=== PATIENT | female | born 1985 | race Caucasian/White ===

== ENCOUNTER 2022-07-24 13:39 | Emergency (ER) | payer MEDICAID, SELFPAY ==
--- NOTE | ~2022-07-24 | XR_ITS ---
EXAMINATION: XR CHEST CLINICAL INFORMATION: Cough. COMPARISON: None TECHNIQUE: 2 views of the chest were obtained. FINDINGS: No significant abnormality is noted involving the heart, lungs, mediastinum, bony thorax or soft tissues. XR/XR chest 2V IMPRESSION: Unremarkable examination.
[2022-07-24 14:26] VITALS: BP 150/89; PULSE 98; RESP 16; TEMP 36.6; O2SAT 98; BMI 30.9
[2022-07-24 14:56] LABS: COVID-19 Test Negative (Negative); IDNOW Serial# 16C4AD1C
--- NOTE | 2022-07-24 18:13 | ED.URI ---
HPI - URI/Sore Throat General Chief Complaint: Upper Respiratory Symptoms Stated Complaint: throat pain Time Seen by Provider: 07/24/22 18:12 Source: patient, family (Significant other) and lang interpreter Mode of arrival: ambulatory Limitations: no limitations History of Present Illness HPI Narrative: 37-year-old female came in for evaluation of runny nose, congestion, coughing. Symptoms started about 7 days ago with fever, runny nose, nasal congestion, productive cough with yellow sputum, most of the symptoms improved except the coughing that is been persistent. Patient not smoker, no history of COPD or asthma. No sick contact, no recent travel. Related Data Previous Rx's Medication Instructions Recorded albuterol sulfate 90 mcg/actuation 1 inh inhalation Q4-6H PRN 07/24/22 breath activated powder inhaler shortness of breath or wheezing #1 ea azithromycin 250 mg tablet See Rx Instructions PO .COMPLEX #6 07/24/22 (Zithromax Z-Andrade) tabs prednisone 20 mg tablet 20 mg PO BID #10 tabs 07/24/22 Allergies Allergy/AdvReac Type Severity Reaction Status Date / Time No Known Allergies Allergy Verified 07/24/22 14:26 [No Known Allergies*] Review of Systems Review of Systems: All other systems are reviewed and are negative Constitutional: Reports as per HPI and Reports no additional constitutional complaints Eyes: Reports as per HPI and Reports no additional eye complaints Reports system reviewed and no additional complaints, except as documented Cardiovascular: Reports as per HPI and Reports no additional cardiovascular complaints Respiratory: Reports as per HPI and Reports no additional respiratory complaints Gastrointestinal: Reports as per HPI and Reports no additional gastrointestinal complaints Genitourinary: Reports no additional female genitourinary complaints Musculoskeletal: Reports no additional musculoskeletal complaints Skin/Breast: Reports system reviewed and no additional complaints, except as docu Psychiatric: Reports no additional psychiatric complaints Endocrine: Reports no additional endocrine complaints Hematologic/Lymphatic: Reports no additional hematologic/lymphatic complaints Allergic/Immunologic: Reports no additional allergic/immunologic complaints Reports system reviewed and no additional complaints, except as documented and Reports Abnormal speech present Physical Exam Vital Signs: Vital Signs: Last Vital Signs Temp 98 F 07/24/22 14:26 Pulse 98 07/24/22 14:26 Resp 16 07/24/22 14:26 BP 150/89 H 07/24/22 14:26 Pulse Ox 98 07/24/22 14:26 O2 Del Method 07/24/22 14:26 BMI result Body Mass Index 30.9 Vital signs have been reviewed as appeared to be correct. Blood pressure normal. Heart rate normal. Respiration rate normal. Temperature normal. Oxygen saturation normal. Appearance: Alert. Oriented X3. No acute distress. Head: Normal external exam. Normocephalic. Atraumatic. No Hall signs noted. No raccoon eyes noted Eyes: PERRLA. EOMI. Conjunctiva and sclera normal. Eyelids normal. ENT: TM's Normal. Pharynx normal. Uvula midline. Moist mucous membranes. No trismus noted. No drooling noted. No muffled voice noted. Neck: Normal inspection. Neck supple. FROM. No adenopathy. Thyroid Normal. No meningeal signs. No neck mass noted. CVS: Normal heart rate and rhythm. Heart sound normal. No murmurs noted. Pulses normal throughout. Respiratory: No respiratory distress. Painless inspiration. Breath sounds normal. Prolonged expiration with expiratory wheezing. Chest nontender. No accessory muscle usage noted or decreased air movement noted. Abdomen: Soft and nontender. Bowel sounds normal in all 4 quadrants. No distention noted. No organomegaly noted. No visible injury noted. Back: No CVA tenderness. Full range of motion noted. Skin: Skin warm and dry. Normal skin color. Normal skin turgor. No rashes/lesions/lacerations noted. Extremities: No lower extremity edema. Extremities exhibit normal range of motion. Extremities nontender. Neuro: Oriented X 3. Cranial nerve exam: II-XII are grossly intact No motor deficit. No sensory deficit. Reflexes normal. Course Course Course Narrative: 37-year-old female came in with sign of acute bronchitis persist for 7 days with productive coughing with yellow sputum. Will start the patient on bronchodilator, prednisone, course of Z-Andrade. MDM - URI/Sore Throat Lab Data Attestation: I reviewed the patient's lab results. Labs: Lab Results 07/24/22 Range/Units 14:30 COVID-19 (ANAHY) Negative (Negative) COVID-19 Clin Com See Note Imaging Data Chest x-ray: Attestation: I personally reviewed and interpreted this imaging study as follows: Radiologist's impression: Unremarkable examination. Discharge Plan Discharge Clinical Impression: Upper respiratory infection, Bronchitis Patient Disposition: Home, Self-Care Instructions: Acute Bronchitis (ED) Prescriptions: New albuterol sulfate 90 mcg/actuation aerosol powdr breath activated 1 inh inhalation Q4-6H PRN (Reason: shortness of breath or wheezing) Qty: 1 0RF prednisone 20 mg tablet 20 mg PO BID Qty: 10 0RF azithromycin [Zithromax Z-Andrade] 250 mg tablet See Rx Instructions .ROUTE .COMPLEX Qty: 6 0RF Rx Instructions: For 250 mg dose pack: take 500 mg today (day 1), then 250 mg for 4 days (days 2-5) Referrals: Javi Mccain MD [Primary Care Provider] -
== END 2022-07-24 19:03 | disposition home or self-care (01) ==
LOC: HO.ED 18:57
PROVIDERS: Emergency Provider Emergency Medicine; PCP Internal Medicine
DX: J06.9 Acute upper respiratory infection, unspecified (principal); J40 Bronchitis, not specified as acute or chronic; Z20.822 Contact with and (suspected) exposure to COVID-19
CPT/HCPCS: 71046; 87635; 99282; 99283

== ENCOUNTER 2023-05-22 11:53 | Outpatient (REF) | payer MEDICAID, SELFPAY ==
--- NOTE | ~2023-05-22 | XR_ITS ---
EXAMINATION: XR CHEST CLINICAL INFORMATION: Cough. COMPARISON: 07/24/2022 chest radiographs. TECHNIQUE: 2 views of the chest were obtained. FINDINGS: No significant abnormality is noted involving the heart, lungs, mediastinum, bony thorax or soft tissues. XR/XR chest 2V IMPRESSION: No acute cardiopulmonary process. If symptoms persist or worsen, short-term repeat PA and lateral views of chest are recommended to assess for more acute change.
== END 2023-05-22 11:54 | disposition home or self-care (01) ==
LOC: HO.HHCX 11:53
PROVIDERS: Visit Provider Student in an Organized Health Care Education/Training Program
DX: R05.9 Cough, unspecified (principal); R06.02 Shortness of breath
CPT/HCPCS: 71046

== ENCOUNTER 2023-07-04 14:31 | Outpatient (REF) | payer MEDICAID, SELFPAY ==
--- NOTE | ~2023-07-04 | MM_ITS ---
EXAMINATION: MM DIAGNOSTIC DIGITAL BREAST TOMOSYNTHESIS, BILATERAL US BREAST LIMITED, LEFT MAMMOGRAPHY: CLINICAL INFORMATION: 38-year-old female, baseline mammography. Patient's physician felt palpable focus of concern upper inner quadrant left breast, which the patient herself cannot feel. Patient also complaining of episodic left yellowish nipple discharge. Routine screening bilaterally. COMPARISON: Mammography: None. Baseline exam. TECHNIQUE: Digital breast tomosynthesis is performed in both the craniocaudal and mediolateral oblique views along with computer-aided detection (CAD). Synthesized 2D images are generated from the tomosynthesis. A full-field additional right 3-D MLO projection was obtained due to motion artifact, as well as a full field 3-D digital left mediolateral view. FINDINGS: The breasts are heterogeneously dense, which may obscure small masses (ACR BI-RADS breast composition Category c). There are numerous bilateral circumscribed oval and round masses in both breasts, findings consistent with benign entities such as numerous cysts or fibroadenomas. No evidence of suspicious mass, area of architectural distortion, or suspicious grouped calcifications identified. A few scattered benign-appearing calcifications are present in both breasts. There is no mammographic abnormality in the upper inner left breast, nor in the retroareolar left breast to explain patient's symptomatology or the purported palpable focus of concern. ULTRASOUND: CLINICAL INFORMATION: Left nipple discharge, and questionable palpable focus of concern upper inner quadrant left breast. Baseline mammography. COMPARISON: None TECHNIQUE: Targeted sonographic evaluation was performed with attention to the left retroareolar region and left upper inner quadrant, using a high frequency linear transducer. Selected archived documentation. FINDINGS: LEFT BREAST: There are numerous islands of dense breast parenchyma identified in the left breast. There is no mass, cystic abnormality, abnormal parenchymal shadowing, or intraductal mass identified. There is mild retroareolar duct ectasia present without intraluminal filling defects. No sonographic correlate to the purported focus of palpable concern left breast upper inner quadrant. MM/MM tomosynthesis diagnostic BI IMPRESSION: There are no findings suspicious for malignancy in either breast. Benign findings bilaterally as described. No imaging correlate to the purported focus of palpable concern left breast upper inner quadrant, nor is there imaging explanation for left nipple discharge aside from mild retroareolar ectatic ducts. Recommend clinical management of the patient's symptomatology. Decision to biopsy a palpable abnormality without imaging correlate must be determined on a clinical basis. Otherwise, recommend resuming routine annual screening mammography. OVERALL ASSESSMENT: Mammography: BI-RADS 2 - Benign Findings Ultrasound: BI-RADS 2 - Benign Findings RECOMMENDATION: 1 year F/U This patient's information was entered into a reminder system with a target due date for their next mammogram.
== END 2023-07-04 14:32 | disposition home or self-care (01) ==
LOC: HO.MAMMO 14:31
PROVIDERS: PCP Nurse Practitioner Primary Care; Visit Provider Nurse Practitioner Primary Care
DX: N64.52 Nipple discharge (principal)
CPT/HCPCS: 76642; 77062; 77066

== ENCOUNTER → 2023-07-04 15:00 | Outpatient (BNV) | payer MEDICAID, SELFPAY | PROVIDERS: PCP Nurse Practitioner Primary Care; Visit Provider Radiology Diagnostic Radiology | DX: N63.22 Unspecified lump in the left breast, upper inner quadrant (principal) | CPT/HCPCS: 76642; 77062; 77066 ==

== ENCOUNTER 2023-11-14 18:25 | Outpatient (REF) | payer MEDICAID, SELFPAY | END 2023-11-14 18:26 | disposition home or self-care (01) | LOC: HO.HHCLNP 18:25 | PROVIDERS: Visit Provider Emergency Medicine | DX: Z11.3 Encounter for screening for infections with a predominantly sexual mode of transmission (principal); R50.9 Fever, unspecified | CPT/HCPCS: 0353U; 87086; 87088; 87186; 87480; 87510; 87660 ==

== ENCOUNTER 2024-03-19 14:06 | Outpatient (REF) | payer MEDICAID, SELFPAY ==
[2024-03-19 16:02] LABS: MANUAL DIFF FLAG NO
[2024-03-19 16:05] LABS: Basophils Absolute Auto 0.1 X10*3/uL (0.0-0.2); Basophils Percent Auto 0.6 % (0-2); Eosinophils Absolute Auto 0.3 X10*3/uL (0.0-0.4); Eosinophils Percent Auto 3.6 % (0-4); Hematocrit 31.9 % (37.0-47.0); Imm Gran Abs Auto 0.02 X10*3/uL (0.00-0.03); Imm Gran Pct Auto 0.2 % (0.0-0.4); Lymphocytes Absolute Auto 2.3 X10*3/uL (1.2-4.9); Lymphocytes Percent Auto 27.2 % (20-40); Mean Corpuscular HGB Conc 31.3 g/dl (31.0-35.0); Mean Corpuscular Hemoglobin 23.3 pg (27.0-33.0); Mean Corpuscular Volume 74.4 fL (80.0-98.0); Mean Platelet Volume 12.4 fL (9.4-12.3); Monocytes Absolute Auto 0.7 X10*3/uL (0.1-1.2); Monocytes Percent Auto 8.3 % (2-11); Neutrophils Percent Auto 60.1 % (45-73); Platelet Count 305 X10*3/uL (160-400); Red Blood Count 4.29 X10*6/uL (4.20-5.50); Red Cell Distribution Width 14.9 % (11.0-16.0); White Blood Count 8.3 X10*3/uL (4.8-10.8)
[2024-03-19 17:32] LABS: CT PCR NOT DETECTED (Not Detect.); NG PCR NOT DETECTED (Not Detect.)
[2024-03-20 12:14] LABS: CT PCR NOT DETECTED (Not Detect.); NG PCR NOT DETECTED (Not Detect.)
[2024-03-20 14:34] LABS: BV Int Neg Control Negative (Negative); BV Int Pos Control Positive (Positive)
== END 2024-03-19 14:07 | disposition home or self-care (01) ==
LOC: HO.HHCL 14:06
PROVIDERS: Visit Provider Nurse Practitioner Family
DX: D50.9 Iron deficiency anemia, unspecified (principal); N76.0 Acute vaginitis
CPT/HCPCS: 0353U; 36415; 85025; 87480; 87510; 87660

== ENCOUNTER 2024-04-15 16:03 | Outpatient (REF) | payer MEDICAID, SELFPAY ==
[2024-04-28 12:07] LABS: HPV 16 RNA NOT DETECTED (NOT DETECTED); HPV mRNA E6/E7 rflx Detected (Not Detected)
== END 2024-04-15 16:04 | disposition home or self-care (01) ==
LOC: HO.HHCLNP 16:03
PROVIDERS: Visit Provider Advanced Practice Midwife
DX: Z12.4 Encounter for screening for malignant neoplasm of cervix (principal)
CPT/HCPCS: 87624; 87625; 88142

== ENCOUNTER 2024-04-23 12:27 | Outpatient (REF) | payer MEDICAID, SELFPAY ==
--- NOTE | ~2024-04-23 | US_ITS ---
EXAMINATION: US PELVIS CLINICAL INFORMATION: Menorrhagia. Right lower quadrant pain. COMPARISON: Previous pelvic ultrasound September 2017 TECHNIQUE: Ultrasound of the pelvis is performed using both transabdominal and transvaginal transducers along with Doppler. Transvaginal imaging is performed due to inadequate visualization transabdominally. FINDINGS: The uterus is anteverted and measures 10 x 5.7 x 6.8 cm in dimension. No focal uterine lesion is seen. Endometrial thickness is normal measuring 1.4 cm. No focal uterine lesion. Small nabothian in the cervix. The right ovary is enlarged and measures 5.5 x 3.9 x 4.2 cm. There is a 3.5 x 3.7 x 3.9 cm complex cyst with some septations and low-level internal echoes. Ultrasound appearance is most suggestive of a hemorrhagic cyst. The left ovary is normal and measures 3.6 x 2.1 x 2.4 cm. There is no fluid in the pelvis. US/US pelvic and transvaginal IMPRESSION: Enlarged right ovary containing 3.5 x 3.7 x 3.9 cm complex cyst. This probably represents a hemorrhagic cyst. Follow-up exam following several menstrual cycles in 10-12 weeks recommended.
== END 2024-04-23 12:28 | disposition home or self-care (01) ==
LOC: HO.US 12:27
PROVIDERS: PCP Advanced Practice Midwife; Visit Provider Advanced Practice Midwife
DX: R10.2 Pelvic and perineal pain (principal); N92.0 Excessive and frequent menstruation with regular cycle
CPT/HCPCS: 76830; 76856

== ENCOUNTER 2024-09-24 14:40 | Outpatient (REF) | payer MEDICAID, SELFPAY | END 2024-09-24 14:41 | disposition home or self-care (01) | LOC: HO.HHCL 14:40 | PROVIDERS: Visit Provider Student in an Organized Health Care Education/Training Program | DX: D64.9 Anemia, unspecified (principal) | CPT/HCPCS: 36415; 85025 ==

== ENCOUNTER 2024-10-12 11:52 | Outpatient (REF) | payer MEDICAID, SELFPAY ==
[2024-10-12 14:39] LABS: HCG Quantitative < 2 mIU/mL; TSH reflex Free T4 1.27 uIU/mL (0.32-4.0)
[2024-10-13 05:04] LABS: Syphilis Screen Nonreactive (Nonreactive)
[2024-10-13 05:28] LABS: HBc Num1 0.09 S/CO (0.00-0.79); HBsAGNum1 0.46 S/CO (0.00-0.99); HIV AB/AG Nonreactive (Nonreactive); HIV Num 1 0.05 S/CO (0.00-0.99); Hepatitis B Core Antibody Nonreactive (Nonreactive); Hepatitis B Surface Antigen Negative (Negative); ~Hepatitis B Surface Antibody REACTIVE (Nonreactive)
[2024-10-13 07:22] LABS: CT PCR NOT DETECTED (Not Detect.); NG PCR NOT DETECTED (Not Detect.)
== END 2024-10-12 11:53 | disposition home or self-care (01) ==
LOC: HO.HHCL 11:52
PROVIDERS: Visit Provider Advanced Practice Midwife
DX: Z11.3 Encounter for screening for infections with a predominantly sexual mode of transmission (principal); N93.9 Abnormal uterine and vaginal bleeding, unspecified
CPT/HCPCS: 36415; 84443; 84702; 86704; 86706; 86780; 87340; 87389; 87491; 87591

== ENCOUNTER 2024-10-20 14:02 | Outpatient (REF) | payer MEDICAID, SELFPAY | END 2024-10-20 14:03 | disposition home or self-care (01) | LOC: HO.US 14:02 | PROVIDERS: PCP Nurse Practitioner Primary Care; Visit Provider Advanced Practice Midwife | DX: Z13.89 Encounter for screening for other disorder (principal) ==

== ENCOUNTER 2024-10-26 18:03 | Outpatient (REF) | payer MEDICAID, SELFPAY | END 2024-10-26 18:04 | disposition home or self-care (01) | LOC: HO.HHCLNP 18:03 | PROVIDERS: Visit Provider Advanced Practice Midwife | DX: N64.52 Nipple discharge (principal) | CPT/HCPCS: 88112 ==

== ENCOUNTER 2024-11-23 09:42 | Outpatient (REF) | payer MEDICAID, SELFPAY ==
--- NOTE | ~2024-11-23 | US_ITS ---
EXAMINATION: MM DIAGNOSTIC DIGITAL BREAST TOMOSYNTHESIS, BILATERAL Limited bilateral ultrasound. CLINICAL INFORMATION: Left yellow nipple discharge and right breast pain. COMPARISON: Mammography: Comparison is made with relevant prior exams. TECHNIQUE: Digital breast mammography with tomosynthesis is performed in both the craniocaudal and mediolateral oblique views along with computer-aided detection (CAD). Limited bilateral ultrasound. FINDINGS: The breasts are heterogeneously dense, which may obscure small masses (ACR BI-RADS breast composition Category c). There are bilateral circumscribed oval masses not significantly changed from prior mammogram June 2023 consistent with benign fibrocystic changes. Left: There are no significant masses, abnormal calcifications, or other abnormalities. Targeted color Doppler ultrasound scanning in the retroareolar region of the left breast demonstrates normal fibronodular breast tissue. There are a few ectatic ducts which are benign. Right: Triangular marker at the site of pain in the retroareolar region without underlying abnormality. No suspicious calcifications masses or other abnormal findings. Targeted color Doppler ultrasound in the retroareolar region of the right breast in the area the patient's pain demonstrates normal fibroglandular breast tissue and a few ectatic ducts which are benign. Results are provided to the patient at time of visit by the technologist. US/US breast BI limited mamm only IMPRESSION: Bilateral ectatic ducts. No mammographic or sonographic abnormality to account for the patient's left mid yellow nipple discharge. Recommend clinical evaluation and follow-up. If the patient has bloody nipple discharge breast MRI with contrast should be considered for further evaluation. No mammographic or sonographic abnormality to account for the patient's right breast pain. Recommend clinical evaluation and follow-up. ASSESSMENT: BI-RADS BI-RADS 2 - Benign Findings RECOMMENDATION: 1 year F/U This patient's information was entered into a reminder system with a target due date for their next mammogram. Electronically signed by: Pauline Gordon DO 11/23/2024 04:16 PM [facility] [place]
== END 2024-11-23 09:43 | disposition home or self-care (01) ==
LOC: HO.MAMMO 09:42
PROVIDERS: PCP Nurse Practitioner Primary Care; Visit Provider Advanced Practice Midwife
DX: N64.52 Nipple discharge (principal)
CPT/HCPCS: 76642; 77062; 77066

== ENCOUNTER → 2024-11-23 11:45 | Outpatient (BNV) | payer MEDICAID, SELFPAY | PROVIDERS: PCP Nurse Practitioner Primary Care; Visit Provider Internal Medicine | DX: N64.52 Nipple discharge (principal) | CPT/HCPCS: 76642; 77062; 77066 ==

== ENCOUNTER 2025-09-25 23:13 | Emergency (ER) | payer MEDICAID, SELFPAY ==
--- NOTE | ~2025-09-25 | XR_ITS ---
CLINICAL HISTORY: pain s p trauma Left hand, 3 views COMPARISON: None provided FINDINGS: No acute fracture. No dislocation. 3rd digit soft tissue swelling. No visible foreign body. IMPRESSION: No acute fracture. Third digit soft tissue swelling. This document has been electronically signed by: Neftali Del Angel MD on 09/26/2025 01:07:42
[2025-09-25 23:15] VITALS: BP 137/60; PULSE 108; RESP 16; TEMP 36.6; O2SAT 99; BMI 32.2
--- NOTE | 2025-09-25 23:45 | ED.EXTPRO ---
HPI - Extremity Problem General Chief complaint: Extremity Injury, Upper Stated complaint: General medicine Time Seen by Provider: 09/25/25 23:41 History of Present Illness ED Provider: catarina HPI Narrative: 40-year-old female who had a low mechanism fall she felt that she landed on the dorsal aspect of the left hand fingers supporting most of her weight feels pain and tenderness from the PIP to the PIP region of the left 3rd finger where she feels swollen. No other injuries sustained Related Data Previous Rx's ?Medication ?Instructions ?Recorded albuterol sulfate 90 mcg/actuation 1 inh inhalation Q4-6H PRN 07/24/22 breath activated powder inhaler shortness of breath or wheezing #1 ea azithromycin 250 mg tablet See Rx Instructions PO .COMPLEX #6 07/24/22 (Zithromax Z-Andrade) tabs prednisone 20 mg tablet 20 mg PO BID #10 tabs 07/24/22 Allergies Allergy/AdvReac Type Severity Reaction Status Date / Time No Known Allergies (No Known Allergy Verified 09/25/25 23:17 Allergies*) [facility] Social History Social History Advance Directives: No Advance Directives Information Provided: No Physical Exam Vital Signs: Vital Signs: Last Vital Signs Temp 97.9 F 09/26/25 01:25 Pulse 101 H 09/26/25 01:25 Resp 18 09/26/25 01:25 BP 134/71 09/26/25 01:25 Pulse Ox 97 09/26/25 01:25 O2 Del Method Room Air 09/26/25 01:25 BMI result Body Mass Index 32.2 Extrem: Right upper extremity: Extremity exam: right hand ( mild tenderness with minimal swelling from PIP DI P left 3rd digit) Medical Decision Making Medical Decision Making MDM Narrative: Medical Decision Makin-year-old female with a fall onto the hand with pain isolated to the distal left 3rd digit where she has tenderness no gross deformity. Well-perfused digit. X-ray with no findings to suggest fracture or dislocation. Finger splint applied Preliminary Favored Differential Diagnosis: finger fracture, finger sprain among additional considered etiologies Testing Interpreted Independently: ?See below for details Radiology or Lab testing Results Reviewed: ?See below for details Consults: ?See below for details Independent Historians/External Chart Reviews: ?See below for details Social Determinants of Health Impacting MDM/Planning: ?See below for details Discharge Plan Discharge Clinical Impression: Finger sprain Patient Disposition: Home, Self-Care Instructions: Finger Sprain (ED) Additional Instructions: DISCHARGE DIAGNOSES: Contusion of the finger possible sprain or soft tissue injury no findings to suggest fracture HISTORY OF PRESENTATION: ?Fall onto the left hand with pain EMERGENCY DEPARTMENT COURSE,TESTS, TREATMENTS: While in the ED today x-ray of the hand did not show dislocation or fracture DISCHARGE MEDICATIONS: ?[We have made no changes to your regular medication regimen] FOLLOW-UP: ?Call your primary or general physician soon as possible to discuss your symptoms, your ED visit and to discuss follow up plans Call your primary doctor for follow up INSTRUCTIONS ?& RETURN PRECAUTIONS: If any symptoms change first call your primary physician, if it is after-hours your primary doctors office should have a provider traffic control signaler you can speak with. If the symptoms are severe or very concerning to you then call 911 or return to the ED. You can wear the finger splint as needed or desired for immobilization of the digit until you feel comfortable flexing and extending Noel Castle MD Emergency Physician [facility] Prescriptions: No Action albuterol sulfate 90 mcg/actuation aerosol powdr breath activated 1 inh inhalation Q4-6H PRN (Reason: shortness of breath or wheezing) Qty: 1 0RF prednisone 20 mg tablet 20 mg PO BID Qty: 10 0RF azithromycin [Zithromax Z-Andrade] 250 mg tablet See Rx Instructions .ROUTE .COMPLEX Qty: 6 0RF Rx Instructions: For 250 mg dose pack: take 500 mg today (day 1), then 250 mg for 4 days (days 2-5) Interventions: ED Discharge Assessment Last Done: 09/26/25 01:25 Discharge Date/Time: 09/26/25 01:25 Print Language: Angolan
--- OUTSIDE RECORDS SUMMARY | 2025-09-26 00:49 | XMS_ITS | Encounter Summary ---
Author Organization [employer] Address [address] [place] [address] [address] [place] [address] Care Team Providers Care Seo Team Lead Name Role Phone Mary Boudreaux MD Primary Care Provider + Reason for Visit * Reason Onset Date Comments Nurse Triage 07/16/2023 Encounter Details Date Type Department Care Team (Late st Contact Info) Description 07/16/2023 Telephone [facility] MEDICINE [address] [place] [address] Mary Boudreaux MD [address] [place] [address] Nurse Triage Social History Tobacco Use Types Packs/Day Years Used Date Smoking Tobacco: Never Passive Smoke Exposure: Never Smokeless Tobacco: Never Alcohol Use Standard Drinks/Week Comments Never 0 (1 standard drink = 0.6 oz pur e alcohol) Depression Answer Date Recorded Patient Health Questionnaire-9 Score 12 05/02/2023 Depression Answer Date Recorded Patient Health Questionnaire-2 Score 6 05/02/2023 Comments Unknown Sex and Gender Information Value Date Recorded Sex Assigned at Female 09/09/2022 10:29 AM EDT Legal Sex Female 10:29 AM EDT Gender Identity Female 09/09/2022 10:29 AM EDT Sexual Orientation Straight 09/09/2022 10 :29 AM EDT documented as of this encounter Miscellaneous Notes * Telephone Encounter - Daniela Bueno RN - 07/16/2023 1:40 PM EDT Triage call with [facility] [place] [id number] Pt reports getting news of Pt 's mother dying 3 days ago. Pt has had a bad , migraine for the last 3 days due to this news. Pt has had some vomiting due to pain as well. Pt does not have any migrainemedication since hasn't had migraine for at least a year. Pt has had sumatriptan 50mg last ordered 08/08/21 which Pt reports is effective. Advised Pt will request a refill of this medication. Pt agrees . Advised to come to [facility] today if needed. Advised Pt to use cold, wet , washcloth on forehead and lay down for 20 min. in dark room and Pt agreed. Pt agrees with plan and disposition. Protocol Used: Headache (Adult) Protocol-Based Disposition: See in Office or Video Visit Today Video visit not offered Positive Triage Question: * Patient wants to be seen * All higher-acuity triage questions were negative Care Advice Discussed: * Reassurance and Education - Migraine Headache * Pain Medicines * Pain Medicines - Extra Notes and Warnings * Pain Medicine for Migraine * Rest for Headache * Cold Pack for Headache * Stretching * Reasons To Call Back - Severe headache persists over 2 hours after pain medicine - Headache lasts over 24 hours despite using a pain medicine - You become worse * Telephone Encounter - Raegan Rivas - 07/16/2023 11:54 AM EDT Symptom: Headache and vomiting Outcome: Schedule an urgent appointment (within 4 hours) or talk to a nurse or provider soon Reason: Started within the past 3 days The caller accepted this outcome documented in this encounter Plan of Treatment Not on file documented as of this encounter Visit Diagnoses Diagnosis Migraine without aura, not refractory- Primary documented in this encounter Additional Health Concerns Assessment Noted Time PHQ-9 Depression Total Score: 12 023 11:52 AM EDT documented as of this encounter Care Teams Seo Team Lead Relationship Specialty Start Date End Date Mary Boudreaux MD [address] [place] [id number] PCP - General Family Medicine 10/23/20 documented as of this encounter
--- OUTSIDE RECORDS SUMMARY | 2025-09-26 00:49 | XMS_ITS | Encounter Summary ---
Author Organization [employer] Address [address] [facility] [address] [place] [address] Care Team Providers Care Loss Prevention And Safety Manager Name Role Phone Mary Boudreaux MD Primary Care Provider + Encounter Details Date Type Department Care Team ([facility] st Contact Info) Description 03/12/2023 Orders Only [facility] [address] [place], [place] [phone] Mitch Ching MD [address] [place], [place] [phone] Social History Tobacco Use Types Packs/Day Years Used Date Smoking Tobacco: Never Passive Smoke Exposure: Never Smokeless Tobacco: Never Comments Unknown Sex and Gender Information Value Date Recorded Sex Assigned at Female 09/09/2022 10:29 AM EDT Legal Sex Female 10:29 AM EDT Gender Identity Female 09/09/2022 10:29 AM EDT Sexual Orientation Straight 09/09/2022 10 :29 AM EDT COVID-19 Exposure Response Date Recorded In the last 10 days, have yo u been in contact with someone who was confirmed or suspected to have Coronavirus/COVID-19? No / Unsure 03/06/2023 11:33 AM EDT documented as of this encounter Plan of Treatment Not on file documented as of this encounter Visit Diagnoses Not on filedocumented in this encounter Care Teams Loss Prevention And Safety Manager Relationship Specialty Start Date End Date Mary Boudreaux MD [address] [place] [phone] PCP - General Family Medicine 10/23/20 documented as of this encounter
--- OUTSIDE RECORDS SUMMARY | 2025-09-26 00:49 | XMS_ITS | Encounter Summary ---
Author Organization [employer] Address [address] [place] [address] Care Team Providers Care Elevator Runner Name Role Phone Mary Boudreaux MD Primary Care Provider + Reason for Visit * Reason Onset Date Comments Appointment Request 04/02/2024 Encounter Details Date Type Department Care Team ([facility] st Contact Info) Description 04/02/2024 Telephone [facility] [address] [place] [address] Mary Boudreaux MD [address] [place] [address] Appointment Request Social History Tobacco Use Types Packs/Day Years Used Date Smoking Tobacco: Never Passive Smoke Exposure: Never Smokeless Tobacco: Never Alcohol Use Standard Drinks/Week Comments Never 0 (1 standard drink = 0.6 oz pur e alcohol) Depression Answer Date Recorded Patient Health Questionnaire-9 Score 12 05/02/2023 Housing Stability Answer Date Recorded What is your housing situation today? I have maude stokes 08/29/[address] you li ve. Do you have problems with any of the following? None of the above 08/29/2023 Food Insecurity Answer Date Recorded Within the past 12 months, y ou worried that your food would run out before you got money to buy more: Never True 08/29/2023 Within the past 12 months,th e food you bought just didn't last and you didn't have enough money to get more: Never True Transportation Answer Date Recorded In the past 12 months, has l ack of transportation kept you from medical appts, meetings, work or from getting things needed for daily living? No 08/29/2023 Utilities Answer Date Recorded In the past 12 months, has t he electric, gas, oil or water company threatened to shut off services in your home? No 08/29/2023 Depression Answer Date Recorded Patient Health Questionnaire-2 Score 6 05/02/2023 Comments Unknown Sex and Gender Information Value Date Recorded Sex Assigned at Female 09/09/2022 10:29 AM EDT Legal Sex Female 10:29 AM EDT Gender Identity Female 09/09/2022 10:29 AM EDT Sexual Orientation Straight 09/09/2022 10 :29 AM EDT documented as of this encounter Miscellaneous Notes * Telephone Encounter - Bucky Sal - 04/02/2024 1:55 PM EDT Tc from patient calling to cancel derm appt and would like a call back to reschedule documented in this encounter Plan of Treatment Not on file documented as of this encounter Visit Diagnoses Not on filedocumented in this encounter Additional Health Concerns Assessment Noted Time PHQ-9 Depression Total Score: 12 023 11:52 AM EDT documented as of this encounter Care Teams Elevator Runner Relationship Specialty Start Date End Date Mary Boudreaux MD [address] [place] [id number] PCP - General Family Medicine 10/23/20 documented as of this encounter
--- OUTSIDE RECORDS SUMMARY | 2025-09-26 00:49 | XMS_ITS | Clinical Summary ---
Author Organization [employer] Address [address] [facility] 7t [place] [address] Care Team Providers Care Metal Engineering Process Worker Name Role Phone Mary Boudreaux MD Primary Care Provider + Allergies No known active allergies Medications * This document contains information received from the source organization and may not represent a complete record from that organization. acetaminophen (Tylenol) 500 MG tablet take 1 tablet (500MG) by oral route every 6 hours as needed for fever/pain 1 Active cholecalciferol (Vitamin D-3) 50 MCG (1999 UT) capsule Take 1 capsule by mouth in the morning. 2 Active Ketoconazole 1 % shampoo Apply topically every 72 hours. 1 Active lidocaine (Lidoderm) 5 % patch Place 1 patch on the skin at bed time. 1 Active docusate sodium (Colace) 100 MG capsule TAKE 1 CAPSULE BY MOUTH TWICE DAILY NEEDED FOR CONSTIPATION 180 capsule 3 Active predniSONE (Deltasone) 20 MG tablet 2 tabs po daily for 5 days 10 tablet 3 Active albuterol (2.5 MG/3ML) 0.083% nebulizer solution Take 3 mL (2.5 mg) by nebulization every 6 (six) hours if needed for wheezing. 75 mL 1 3 Active SUMAtriptan (Imitrex) 50 MG tabletIndicatio ns:Migraine without aura, not refractory Take 1 tablet (50 mg) by mouth Every 6-8 hours as needed for migraine. 18 tablet 3 3 Active norethindrone (Ortho Micronor) 0.35 MG tablet Take 1 tablet (0.35 mg) by mouth Once per day. 28 tablet 12 4 10/11/20 25 Active fluticasone (Flonase) 50 MCG/ACT nasal sprayIndication s:Chronic cough INSTILL 2 SPRAYS IN EACH NOSTRIL ONCE DAILY NEEDED FOR NASAL CONGESTION 48 g 5 Active ferrous sulfate 325 (65 Fe) MG EC tablet TAKE 1 TABLET BY MOUTH TWICE DAILY WITH FOOD, DO NOT BREAK, CRUSH, DISSOLVE OR CHEW 180 tablet 5 Active Ventolin HFA 108 (90 Base) MCG/ACT inhalerIndicati ons:Chronic cough INHALE 2 PUFFS BY MOUTH EVERY 6 HOURS NEEDED FOR WHEEZING 18 g 2 5 Active fluticasone-alan meterol (Advair HFA) 230-21 MCG/ACT inhaler INHALE 2 PUFFS BY MOUTH TWICE DAILY IN THE MORNING AND AT BEDTIME RINSE MOUTH AFTER USING. 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 ([facility]) 12/06/2024 Anxiety 12/06/2024 Duct ectasia of breast, left 11/23/2024 Duct ectasia of breast, right 11/23/2024 Vaginal candidiasis 03/23/2024 Elevated blood pressure read ing in office without diagnosis of hypertension 03/21/2024 Assessment & Plan (03/21/2024 5:24 PM EDT): Pt will continue to measure at home, lifestyle measures reviewed, aware of goal bp <140/<90 Has follow up with pcp Skin tag 03/21/2024 Assessment & Plan (03/21/2024 5:25 PM EDT): Reassurance provided, hgba1c and poc glucose wnl, internal referral to derm for removal Acute vaginitis 03/19/2024 Assessment & Plan (03/21/2024 5:25 PM EDT): Denies chance of , swab pending and reassuring UA, Will treat based on lab findings Iron deficiency anemia 03/19/2024 Assessment & Plan (03/21/2024 5:25 PM EDT): Labs due, pt reports taking and tolerating oral iron Due for labs, will go to lab today Asthma 05/23/2023 Assessment & Plan (05/23/2023 2:48 PM EDT): Pt comes today w acute exacerbation of likely asthma diagnosis that started after Covid-19 infection 3 y ago. VS nl O2, mild tachycardia, but improved after Albuterol nebulizer tx here. Pt feeling better w decreased wheezing after tx. -JACKELYN Johnson checked status of PFT ordered by PCP before and faxed again order so that pt can get appt. -CXR today -referred to coding compliance auditor w ongoing daily Sx -Prednisone 40 mg every day for 5 days -Continue JERSON PRN -Start Advair inhaler -Prescribed nebulizer machine. Gave written prescription to nursing staff, and Albuterol nebulizer prescribed to pharmacy. -F/u w PCP. Has appt already for 06/23/2023 -Alarm signs and Sx explained to pt in case she needs to go to ED. Elevated blood pressure read ing without diagnosis of hypertension 05/02/2023 Assessment & Plan (05/02/2023 1:29 PM EDT): BP today is normal. Counseled re low salt diet/increase moderate physical activity. Check home BP BIW and prn CP/HOLLIDAY/GIL Non smoking patient. Bring BP record at next visit. Chronic cough 05/02/2023 Assessment & Plan (05/02/2023 1:28 PM EDT): Unclear if related to asthma continue proair BID and PRN cough and sob Use flonase x 2 months for potential PND Order PFTS, last metacholine test FU with me in 2 months Abnormal uterine bleeding 01/30/2023 Assessment & Plan (05/02/2023 1:29 PM EDT): Needs to fu with [employer]. She has BTL for BC. I gave her information of [employer] referral + apply to PT1 Alopecia areata 10/17/2022 Loss of hair 10/17/2022 Low vision, both eyes 10/17/2022 Lower urinary tract symptoms 10/17/2022 Menorrhagia 10/17/2022 Assessment & Plan (01/30/2023 1:44 PM EDT): Pt repots life long heavy menses with normal cycle. Mild anemia. Check ferritin and TSH. She would like to discuss options for wedding florist menses. Referral to [employer] done. 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 Pt opts for ketorolac, hold oral nsaids for at least 48 hours, zofran rx for nausea. Pt Return to clinic for worsening symptoms or failure to resolve Assessment & Plan (01/11/2024 8:07 PM EST): Negative SNOOPs questions for red flags of headaches, feels like usual migraine HOLLIDAY to her Migraine cocktail ordered- 8mg Zofran, 50mg Benadryl, a nd 500mg Naproxen x 1 ER precautions if headache does not resolve after this or new neurologic symptoms develop Recurrent urinary tract infection 11/30/2015 Encounters Date Type Department Care Team Description 08/12/2025 Refill [facility] [address] [place] [address] Mary Boudreaux MD 08/07/2025 Refill [facility] [address] [place], [place] [phone] Mary Boudreaux MD Chronic cough 07/20/2025 Refill [facility] [address] [place], [place] [phone] Mary Boudreaux MD Chronic cough from Last 3 Months Immunizations Immunization Administration Dates Next Due Influenza injectable quadriv alent IIV4 with preservative 08/12/2018 Influenza injectable quadrivalent preservative f ree 11/30/2015 Moderna Covid-19 Vaccine 12+ 04/24/2021,03/27/20 21 Family History Medical History Relation Name Comments Breast cancer Father's Sister 1 Breast cancer Father's Sister 2 Relation Name Status Comments Father's Sister 1 Father's Sister 2 Other Social History Tobacco Use Types Packs/Day Years Used Date Smoking Tobacco: Never Passive Smoke Exposure: Never Smokeless Tobacco: Never Tobacco Cessation:Counseling Given: Not Answered Alcohol Use Standard Drinks/Week Comments Never 0 (1 standard drink = 0.6 oz pur e alcohol) Depression Answer Date Recorded Patient Health Questionnaire-9 Score 20 06/29/2024 Patient Health Questionnaire-9 Score 20 06/29/2024 Last PHQ-9: Questionnaire Data Not on file 0 06/29/2024 Housing Stability Answer Date Recorded What is [...] Answer Date Recorded Patient Health Questionnaire-2 Score 5 06/29/2024 Comments No Sex and Gender Information Value Date Recorded Sex Assigned at Female 09/09/2022 10:29 AM EDT Legal Sex Female 10:29 AM EDT Gender Identity Female 09/09/2022 10:29 AM EDT Sexual Orientation Straight 09/09/2022 10 :29 AM EDT Last Filed Vital Signs Vital Sign Reading Time Taken Comments Blood Pressure 135/84 04/22/2025 1:17 PM EDT Pulse 100 04/22/2025 1:17 PM EDT Temperature 36.6 C (97.9 F) 04/22/2025 1:17 PM EDT Respiratory Rate 16 04/22/2025 1:17 PM EDT Oxygen Saturation 98% 04/22/2025 1:17 PM EDT Inhaled Oxygen Concentration - - Weight 83.5 kg (184 lb) 04/22/2025 1:17 PM EDT Height 160 cm (5' 3 ) 10/26/2024 11:13 AM EST Body Mass Index 32.59 10/26/2024 11:13 AM EST Plan of Treatment Health Maintenance Due Date Last Done Comments Disability Screening 1985 Alcohol/Substance Use Screening 1997 HPV Vaccines (1 - 3-dose series) 02/12/2000 DTaP/Tdap/Td Vaccines (1 - Tdap) 02/12/2004 Hepatitis B Vaccines (1 of 3 - 19+ 3-dose series) 02/12/2004 Pneumococcal Vaccine: Pediatrics (0 to 5 Years) and At-Risk Patients (6 to 49) Years (1 of 2 - PCV) 02/12/2004 SDOH Screening 05/02/2024 05/02/2023 Depression Monitoring 12/30/2024 06/29/2024, 024 Cervical Cancer Screening 04/15/2025 HPV/Cotest 04/15/2025 04/15/2024 Pap Smear 04/15/2025 04/15/2024 COVID-19 Vaccine ( season) 2025 04/24/2021, 03/27/2021 Influenza Vaccine (#1) 2025 08/12/2018, 2015 Family Planning (PISQ) 10/12/2025 10/12/2024 Tobacco Screening 03/01/2026 03/01/2025 Mammogram 11/23/2026 11/23/2024, 11/10, 07/04/2023, Additional history exists Zoster Vaccines (1 of 2) 2035 RSV Patients and Patients Aged 60 years or older (1 - 1-dose 75+ series) 02/12/2060 Hepatitis C Screening Completed 01/30/2023 HIV Screening Completed 10/12/2024, 01/30/2023 HIB Vaccines Aged Out No longer eligi ble based on patient's age to complete this topic Hepatitis A Vaccines Aged Out No long er eligible based on patient's age to complete this topic IPV Vaccines Aged Out No longer eligi ble based on patient's age to complete this topic Meningococcal B Vaccine Aged Out No l onger eligible based on patient's age to complete this topic Meningococcal Vaccine Aged Out No desiree tony eligible based on patient's age to complete this topic RSV under 20 months Aged Out No longe r eligible based on patient's age to complete this topic Rotavirus Vaccines Aged Out No longer eligible based on patient's age to complete this topic Procedures Procedure Name Priority Date/Time Associated Diagnosis Comments BI US BREAST LIMITED BILATERAL STAT 11/23/2024 12:15 PM EST HIV 1/2 ANTIGEN/ANTIBODY, FOURTH GENERATION W/RFL Routine 10/12/2024 12:05 PM EST Screening examination for venereal disease HPV MRNA E6/E7 REFLEX TO HPV 16, 18/45 Routine 04/15/2024 11:56 AM EDT PAP SMEAR Routine 04/15/2024 11:00 AM EDT Cervical cancer screening HEPATITIS C AB W/REFL TO HCV RNA, QN, PCR Routine 01/30/2023 1:48 PM EDT Routine screening for STI (sexually transmitted infection) from Last 3 Months or Most Recently Relevant to Health Maintenance Results * BI US Breast Limited Bilateral (11/23/2024 12:15 PM EST) Anatomical Region Laterality Modality Breast Bilateral Ultrasound 11/23/2024 12:1 5 PM EST Narrative 11/23/2024 4:19 PM EST [facility] [address] [place] [address] Ultrasound Report Signed Patient: Ghazala Schwartz MR#: [id number] : 1985 Acct:[id number] Age/Sex: 39 / F ADM Date: 11/23/24 Loc: HO.MAMMO Attending Dr: Josafat Elliott CNM Ordering Physician: JOSAFAT ELLIOTT CNM Date of Service: 11/23/24 Procedure(s): US breast BI limited mamm only Accession Number(s): [id number] cc: JOSAFAT ELLIOTT CNM; DARIO CHAPARRO NP EXAMINATION: MM DIAGNOSTIC DIGITAL BREAST TOMOSYNTHESIS, BILATERAL Limited bilateral ultrasound. CLINICAL INFORMATION: Left yellow nipple discharge and right breast pain. COMPARISON: Mammography: Comparison is made with relevant prior exams. TECHNIQUE: Digital breast mammography with tomosynthesis is performed in both the craniocaudal and mediolateral oblique views along with computer-aided detection (CAD). Limited bilateral ultrasound. FINDINGS: The breasts are heterogeneously dense, which may obscure small masses (ACR BI-RADS breast composition Category c). There are bilateral circumscribed oval masses not significantly changed from prior mammogram June 2023 consistent with benign fibrocystic changes. Left: There are no significant masses, abnormal calcifications, or other abnormalities. Targeted color Doppler ultrasound scanning in the retroareolar region of the left breast demonstrates normal fibronodular breast tissue. There are a few ectatic ducts which are benign. Right: Triangular marker at the site of pain in the retroareolar region without underlying abnormality. No suspicious calcifications masses or other abnormal findings. Targeted color Doppler ultrasound in the retroareolar region of the right breast in the area the patient's pain demonstrates normal fibroglandular breast tissue and a few ectatic ducts which are benign. Results are provided to the patient at time of visit by the technologist. US/US breast BI limited mamm only IMPRESSION: Bilateral ectatic ducts. No mammographic or sonographic abnormality to account for the patient's left mid yellow nipple discharge. Recommend clinical evaluation and follow-up. If the patient has bloody nipple discharge breast MRI with contrast should be considered for further evaluation. No mammographic or sonographic abnormality to account for the patient's right breast pain. Recommend clinical evaluation and follow-up. ASSESSMENT: BI-RADS BI-RADS 2 - Benign Findings RECOMMENDATION: 1 year F/U This patient's information was entered into a reminder system with a target due date for their next mammogram. Electronically signed by: Pauline Gordon DO 11/23/2024 04:16 PM EST Dictated By: Pauline Gordon DO Signed By: <Electronically signed by Pauline Gordon DO in OV> 11/23/24 1616 DD/ 1215 TD/TT: 11/23/24 1237 Treatment Technician: Procedure Note Donotuseinterpreter, Image - [facility] [address] [place] [address] Ultrasound Report Signed Patient: Ghazala Schwartz RMR#: [id number] : 1985Acct:[id number] Age/Sex: 39 / FADM Date: 11/23/24 Loc: HO.MAMMO Attending Dr: Josafat Elliott CNM Ordering Physician: JOSAFAT ELLIOTT CNM Date of Service: 11/23/24 Procedure(s): US breast BI limited mamm only Accession Number(s): [id number] cc: JOSAFAT ELLIOTT CNM; DARIO CHAPARRO NP EXAMINATION: MM DIAGNOSTIC DIGITAL BREAST TOMOSYNTHESIS, BILATERAL Limited bilateral ultrasound. CLINICAL INFORMATION: Left yellow nipple discharge and right breast pain. COMPARISON: Mammography: Comparison is made with relevant prior exams. TECHNIQUE: Digital breast mammography with tomosynthesis is performed in both the craniocaudal and mediolateral oblique views along with computer-aided detection (CAD). Limited bilateral ultrasound. FINDINGS: The breasts are heterogeneously dense, which may obscure small masses (ACR BI-RADS breast composition Category c). There are bilateral circumscribed oval masses not significantly changed from prior mammogram June 2023 consistent with benign fibrocystic changes. Left: There are no significant masses, abnormal calcifications, or other abnormalities. Targeted color Doppler ultrasound scanning in the retroareolar region of the left breast demonstrates normal fibronodular breast tissue. There are a few ectatic ducts which are benign. Right: Triangular marker at the site of pain in the retroareolar region without underlying abnormality. No suspicious calcifications masses or other abnormal findings. Targeted color Doppler ultrasound in the retroareolar region of the right breast in the area the patient's pain demonstrates normal fibroglandular breast tissue and a few ectatic ducts which are benign. Results are provided to the patient at time of visit by the technologist. US/US breast BI limited mamm only IMPRESSION: Bilateral ectatic ducts. No mammographic or sonographic abnormality to account for the patient's left mid yellow nipple discharge. Recommend clinical evaluation and follow-up. If the patient has bloody nipple discharge breast MRI with contrast should be considered for further evaluation. No mammographic or sonographic abnormality to account for the patient's right breast pain. Recommend clinical evaluation and follow-up. ASSESSMENT: BI-RADS BI-RADS 2 - Benign Findings RECOMMENDATION: 1 year F/U This patient's information was entered into a reminder system with a target due date for their next mammogram. Electronically signed by: Pauline Gordon DO 11/23/2024 04:16 PM EST Dictated By: Pauline Gordon DO Signed By: <Electronically signed by Pauline Gordon DO in OV> 11/23/24 1616 DD/ 1215 TD/TT: 11/23/24 1237 Treatment Technician: us Josafat KUMAR IMG US PROCEDURES Final R esult * HIV-1/2 Antigen and Antibodies, Fourth Generation, with Reflexes (10/12/2024 12:05 PM EST) HIV AB/AG Nonreactive Nonreactive [facility] Comment:HIV-1 p24 Ag and/or HIV-1/HIV-2 Ab not detected.A test result that is nonreactive does not exclude thepossibility of exposure to or infection with HIV-1 and/orHIV-2. Nonreactive results in this assay for individualswith prior exposure to HIV-1 and/or HIV-2 may be due toantigen and antibody levels that are below the limit ofdetection of this assay.The POPVOX HIV Ag/Ab Combo assay result andsupplemental assay results should be interpreted inconjunction with the patient's clinical presentation,history and other laboratory results. If the results areinconsistent with clinical evidence, additional testing issuggested to confirm the result. Blood Venous blood specimen / Unknown 10/12/2024 12:05 PM EST 10/12/2024 1:47 PM EST Josafat KUMAR LAB BLOOD ORDERABLES Nabila l Result [facility] [address] [place] [phone] [phone] * (ABNORMAL) HPV mRNA E6/E7 w/Reflex to HPV Genotypes 16, 18/45 (04/15/2024 11:56 AM EDT) HPV nRNA E6/E7 Detected(A ) Not Detected [facility] Comment:Methodology: Transcr iption-Mediated AmplificationThis assay detects E6/E7 viral messenger RNA (mRNA) from 14high-risk HPV types (16,18,31,33,35,39,45,51,52,56,58,59,66,68).Cervical sources are required for HPV testing.If a vaginal source from a patient who has had atotal hysterectomy with removal of cervix wassubmitted, please contact the testing laboratoryfor alternative testing options.For additional information, please refer tohttp://education.Shoozy/faq/SEO364w6(This link if provided for information/educational purposes only.)THIS TEST WAS PERFORMED AT:[facility] [place] [phone] HAQUE MD HPV 16 RNA NOT DETECTED NOT DETECTED [facility] HPV 18/45 RNA NOT DETECTED NOT DETECTED [facility] Comment:Methodology: Transcr iption Mediated AmplificationCervical sources are required for HPV testing.If a vaginal source from a patient who has had atotal hysterectomy with removal of cervix wassubmitted, please contact the testing laboratoryfor alternative testing options.THIS TEST WAS PERFORMED AT:[facility] [place] [phone] HAQUE MD 04/15/2024 11:5 6 AM EDT 04/21/2024 12:27 PM EDT Josafat KUMAR LAB CYTOLOGY ORDERABLES F inal Result [facility] [address] [place] [phone] * Pap Smear (04/15/2024 11:00 AM EDT) Swab Cervix uteri structure / Unknown 04/15/2024 11:00 AM EDT 04/16/2024 9:15 AM EDT Narrative [facility] - 05/10/2024 9:48 AM EDT ----- ------- Name: Ghazala Schwartz Age/Sex: 39/F : 1985 Unit#: [id number] Attend Dr: JOSAFAT ELLIOTT CNM Re04/15/24 Status: [facility] Disch: ----- ------- SPEC : [id number] RECD: 04/16/24 STATUS: EDWARD TIMMONS NUM: [id number] CALLI: 04/15/24-[address]: JOSAFAT ELLIOTT CNM ENTERED: 04/16/24-1007 SP TYPE: Pap Smr OT DR: ORDERED: Pap Smear Interpretation General Category: Negative for intraepithelial lesion/malignancy. Adequacy: Endocervical component absent. Interpretation: Reactive cellular changes. HPV mRNA E6/E7: DETECTED This assay detects E6/E7 viral messenger RNA (mRNA) from 14 high-risk HPV types (16, 18, 31, 33, 35, 39, 45, 51, 52, 56, 58, 59, 66, 68) HPV Type 16 RNA: Not Detected HPV Type 18/45 RNA: Not Detected HPV testing performed by [facility], [place], [place]. See reference laboratory portion of the EMR for entire report. Clinical Information LMP: 03/29/2024 Previous PAP test: Unknown date/findings Material Received ThinPrep-Vaginal/Cervical ----- ------- Signed (signature on file) Ashanti Kinmundy 05/10/24 0948 ----- ------- END OF REPORT Josaaft Elliott [facility] CYTOLOGY ORDERABLES F inal Result [facility] [address] [place] [phone] * Hepatitis C Antibody with Reflex to HCV, RNA, Quantitative, Real-Time PCR (01/30/2023 1:48 PM EDT) Hepatitis C Antibody NON-REACT PEEWEE NON-REACT PEEWEE [facility] [place] [facility] Index 0.03 <1.00 [facility] [facility] [place] [facility] Comment: HCV antibody was non-reactive. There is no laboratory evidence of HCV infection. In most cases, no further action is required. However, if recent HCV exposure is suspected, a test for HCV RNA (test code 89883) is suggested. For additional information please refer to http://GroupZoom.Shoozy/faq/PLP03a7 (This link is being provided for informational/ educational purposes only.) Blood Venous blood specimen / Unknown 01/30/2023 1:48 PM EDT 01/30/2023 1:48 PM EDT Narrative [facility] - 01/31/2023 12:39 PM EDT FASTING:UNKNOWN FASTING: UNKNOWN Adeline Simons MD LAB BLOOD ORDERABLES Final Result [facility] [address], [place] [address] [facility] [address] [place] [phone] from Last 3 Months or Most Recently Relevant to Health Maintenance Insurance [facility] [employer] Care Teams Metal Engineering Process Worker Relationship Specialty Start Date End Date Mary Boudreaux MD [address] [place] [address] PCP - General Family Medicine 10/23/20
--- OUTSIDE RECORDS SUMMARY | 2025-09-26 00:49 | XMS_ITS | Encounter Summary ---
Author Organization [employer] Address [address] [place] [address] 7 [place] [address] Care Team Providers Care Dehydrogenation Converter Operator Name Role Phone Mary Boudreaux MD Primary Care Provider + Reason for Referral * Consultation (Routine) - Closed Specialty Diagnoses / Procedures Referred By Contac t Referred To Contact Breast Surgery Diagnoses Duct ectasia of breast, left Duct ectasia of breast, right Mary Boudreaux MD [address] [place] [address] Phone: tel: fax: [facility] [address] [facility] 3rd Floor [address] [place] [address] Phone: tel: fax: Referral ID Status Reason Start Date Expiration Date V isits Requested Visits Authorized [id number] Closed Specialty Services Required 11/25/2024 11/25/2025 6 6 Encounter Details Date Type Department Care Team (Late st Contact Info) Description 11/23/2024 Orders Only [facility] [address] [place], [place] [phone] Mary Boudreaux MD [address] [place], [place] [phone] Duct ectasia of breast, left (Primary Dx); Duct ectasia of breast, right Social History Tobacco Use Types Packs/Day Years [...] as of this encounter Plan of Treatment Scheduled Referrals Name Type Priority Associated Diagnoses Orde r Schedule Referral to Breast Surgery Outpatient Referral Routine Duct ectasia of breast, left Duct ectasia of breast, right Expected: 11/23/2024 (Approximate), Expires: 11/23/2025 documented as of this encounter Visit Diagnoses Diagnosis Duct ectasia of breast, left- Primary Duct ectasia of breast, right documented in this encounter Additional Health Concerns Assessment Noted Time PHQ-9 Depression Total Score: 20 024 11:36 AM EDT documented as of this encounter Care Teams Dehydrogenation Converter Operator Relationship Specialty Start Date End Date Mary Boudreaux MD [address] [place] [address] PCP - General Family Medicine 10/23/20 documented as of this encounter
--- OUTSIDE RECORDS SUMMARY | 2025-09-26 00:49 | XMS_ITS | Encounter Summary ---
Author Organization [employer] Address [address] [facility] 7 [place] [address] Care Team Providers Care Refinery Operator Helper Crude Unit Name Role Phone Mary Boudreaux MD Primary Care Provider + Reason for Visit * Reason Onset Date Comments Med Refill 12/10/2024 Encounter Details Date Type Department Care Team (Late st Contact Info) Description 12/10/2024 Refill [facility] MEDICINE [address] [place] [address] Annie Hollis CNM [address] [place] [address] Social History Tobacco Use Types Packs/Day Years Used Date Smoking Tobacco: Never Passive Smoke Exposure: Never Smokeless Tobacco: Never Alcohol Use Standard Drinks/Week Comments Never 0 (1 standard drink = 0.6 oz pur e alcohol) Depression Answer Date Recorded Patient Health Questionnaire-9 Score 06/29/2024 Patient Health Questionnaire-9 Score 20 06/29/2024 [...] documented as of this encounter Care Teams Refinery Operator Helper Crude Unit Relationship Specialty Start Date End Date Mary Boudreaux MD [address] [place] [address] PCP - General Family Medicine 10/23/20 documented as of this encounter
--- OUTSIDE RECORDS SUMMARY | 2025-09-26 00:49 | XMS_ITS | Encounter Summary ---
Author Organization [employer] Address [address] [place] [id number] Care Team Providers Care Tool Filer Hand Name Role Phone Mary Boudreaux MD Primary Care Provider + Reason for Visit * Reason Onset Date Comments Med Refill 03/21/2024 Encounter Details Date Type Department Care Team (Late st Contact Info) Description 03/21/2024 Refill [facility] MEDICINE [address] [place] [address] Alba Cleary MD [address] [place] [address] Social History Tobacco Use Types Packs/Day Years [...] documented as of this encounter Care Teams Tool Filer Hand Relationship Specialty Start Date End Date Mary Boudreaux MD [address] [place] [id number] PCP - General Family Medicine 10/23/20 documented as of this encounter
--- OUTSIDE RECORDS SUMMARY | 2025-09-26 00:50 | XMS_ITS | Encounter Summary ---
Author Organization [employer] Address [address] [place] [address] 7 [place] [address] Care Team Providers Care Director Channel Name Role Phone Mary Boudreaux MD Primary Care Provider + Encounter Details Date Type Department Care Team ([facility] st Contact Info) Description 07/21/2023 Abstract [facility] MEDICINE [address] [place], [place] [phone] Provider, Historical, Social History Tobacco Use Types Packs/Day Years [...] on file documented as of this encounter Procedures Procedure Name Priority Date/Time Associated Diagnosis Comments MAMMOGRAPHY Routine 07/04/2023 documented in this encounter Results * Mammography (07/04/2023) Mammogram [place] FINDINGS Anatomical Region Laterality Modality Other Historical Provider HEALTH MAINTENANCE Final Result documented in this encounter Visit Diagnoses Not on filedocumented in this encounter Additional Health Concerns Assessment Noted Time PHQ-9 Depression Total Score: 12 023 11:52 AM EDT documented as of this encounter Care Teams Director Channel Relationship Specialty Start Date End Date Mary Boudreaux MD [address] [place] [id number] PCP - General Family Medicine 10/23/20 documented as of this encounter
--- OUTSIDE RECORDS SUMMARY | 2025-09-26 00:50 | XMS_ITS | Encounter Summary ---
Author Organization [employer] Address [address] [facility] 7 [place] [address] Care Team Providers Care Junior Recruiter Name Role Phone Mary Boudreaux MD Primary Care Provider + Reason for Visit * Reason Onset Date Comments Med Refill 01/20/2024 Encounter Details Date Type Department Care Team ([facility] st Contact Info) Description 01/20/2024 Telephone [facility] MEDICINE [address] [place] [address] Mary Boudreaux MD [address] [place] [address] Med Refill Social History Tobacco Use Types Packs/Day Years [...] encounter Miscellaneous Notes * Telephone Encounter - Smitha Roche LPN - 01/20/2024 2:36 PM EDT Medication pended to provider. * Telephone Encounter - Bucky Sal - 01/20/2024 2:34 PM EDT TC from pt requesting medication refill. Medications needing refill : fluticasone (Flonase Allergy Relief) 50 MCG/ACT nasal spray To be sent to: [facility] - [place], [place] - [address] [place] [address] documented in this encounter Plan of Treatment Not on file documented as of this encounter Visit Diagnoses Not on filedocumented in this encounter Additional Health Concerns Assessment Noted Time PHQ-9 Depression Total Score: 12 023 11:52 AM EDT documented as of this encounter Care Teams Junior Recruiter Relationship Specialty Start Date End Date Mary Boudreaux MD [address] [facility] [place] [address] PCP - General Family Medicine 10/23/20 documented as of this encounter
--- OUTSIDE RECORDS SUMMARY | 2025-09-26 00:50 | XMS_ITS | Encounter Summary ---
Author Organization [employer] Address [address] [facility] [address]t [place] [address] Care Team Providers Care Licensed Customs Broker Name Role Phone Mary Boudreaux MD Primary Care Provider + Encounter Details Date Type Department Care Team ([facility] st Contact Info) Description 11/17/2023 Orders Only [facility] MED & PEDS [address] [place] [address] Peyton Galvez, ELAINA [address] [place] [address] Social History Tobacco Use Types Packs/Day Years [...] documented as of this encounter Care Teams Licensed Customs Broker Relationship Specialty Start Date End Date Mary Boudreaux MD [address] [place] [id number] PCP - General Family Medicine 10/23/20 documented as of this encounter
[2025-09-26 01:25] VITALS: BP 134/71; PULSE 101; RESP 18; TEMP 36.6; O2SAT 97
== END 2025-09-26 01:25 | disposition home or self-care (01) ==
PROVIDERS: Emergency Provider Emergency Medicine; PCP Nurse Practitioner Primary Care
DX: S63.613A Unspecified sprain of left middle finger, initial encounter (principal); W18.30XA Fall on same level, unspecified, initial encounter; Y93.9 Activity, unspecified; Y92.9 Unspecified place or not applicable
CPT/HCPCS: 73130; 99282; 99283

== ENCOUNTER → 2025-09-26 | Outpatient (BNV) | payer MEDICAID, SELFPAY | PROVIDERS: Emergency Provider Emergency Medicine; PCP Nurse Practitioner Primary Care; Visit Provider Radiology Diagnostic Radiology | DX: M25.532 Pain in left wrist (principal); W19.XXXA Unspecified fall, initial encounter | CPT/HCPCS: 73130 ==